=== PATIENT | female | born 1960 | race Asian ===

== ENCOUNTER 2024-02-19 09:00 | Day surgery (SDC) | payer OTHER ==
[~2024-02-19] VITALS: Ht 152.4 cm; Wt 65.0 kg
[~2024-02-19 09:00] MED LIST: SODIUM CHLORIDE 0.9% 1,000 ML ONE
[2024-02-19] MEDS ORDERED: BENZOCAINE 20% 50 MCG/SPRAY 57 GM TP ONE (09:01)
[2024-02-19] MEDS ORDERED: LIDOCAINE 4% 50 ML SOLUTION TP ONE (09:01)
[2024-02-19] MEDS ORDERED: ALBUTEROL SULFATE 2.5 MG/0.5 ML NEB SOLUTION NEB ONE (09:01)
[2024-02-19] MEDS ORDERED: LIDOCAINE 2% 11 ML JELLY TP ONE (09:01)
[2024-02-19] MEDS ORDERED: DiphenhydrAMINE HCL 50 MG/ML VIAL ONE (09:03)
[2024-02-19] MEDS ORDERED: SODIUM TETRADECYL SULFATE 3% 60 MG/2 ML VIAL IVP ONE (09:03)
[2024-02-19] MEDS ORDERED: FLUMAZENIL 0.1 MG/ML 5 ML VIAL IVP ONE (09:03)
[2024-02-19] MEDS ORDERED: NALOXONE HCL 0.4 MG/ML VIAL ONE (09:03)
[2024-02-19] MEDS ORDERED: EPINEPHrine 1:10,000 [1 MG/10 ML] SYRINGE ONE (09:03)
[2024-02-19] MEDS ORDERED: ATROPINE SULFATE 0.1 MG/ML 10 ML SYRINGE IVP ONE (09:03)
[2024-02-19] MEDS ORDERED: FentaNYL CITRATE PF 100 MCG/2 ML VIAL ONE (09:04)
[2024-02-19] MEDS ORDERED: MIDAZOLAM HCL 2 MG/2 ML VIAL ONE (09:04)
[2024-02-19] MEDS: SODIUM CHLORIDE 0.9% 1,000 ML IV ONE (09:31)
[2024-02-19 09:40] VITALS: PULSE 67; RESP 18; O2SAT 98
[2024-02-19 09:56] LABS: GLUCOMETER DEV NAME(LOC) SDS.; GLUCOSE,POINT OF CARE 142 MG/DL (70-110)
[2024-02-19] MEDS ORDERED: MethylPREDNISolone SOD SUCC 125 MG/2 ML VIAL ONE (10:24)
[2024-02-19] MEDS: MethylPREDNISolone SOD SUCC 125 MG/2 ML VIAL IVP ONE (10:29)
[2024-02-19] MEDS ORDERED: CHOL25TA4 PO (11:55)
[2024-02-19] MEDS ORDERED: FLUT16SP NASAL (11:55)
[2024-02-19] MEDS ORDERED: GABA-1216 PO (11:55)
[2024-02-19] MEDS ORDERED: DULO20CA71 PO (11:55)
[2024-02-19] MEDS ORDERED: METH-659 PO (11:55)
[2024-02-19] MEDS ORDERED: CALC-1085 PO (11:55)
[2024-02-19] MEDS ORDERED: DAPA10TA PO (11:55)
[2024-02-19] MEDS ORDERED: MONT-35 PO (11:55)
[2024-02-19] MEDS ORDERED: OLAN5TAB52 PO (11:55)
[2024-02-19] MEDS ORDERED: DICY20TA95 PO (11:55)
[2024-02-19] MEDS ORDERED: ALEN10TA33 PO (11:55)
== END 2024-02-19 12:15 | disposition home or self-care (01) ==
LOC: SURGERY 09:00
PROVIDERS: ATTEND Internal Medicine Critical Care Medicine
DX: R05.3 Chronic cough (principal); J38.4 Edema of larynx; B37.0 Candidal stomatitis; R04.2 Hemoptysis; J98.8 Other specified respiratory disorders; J84.10 Pulmonary fibrosis, unspecified; R91.8 Other nonspecific abnormal finding of lung field; J45.909 Unspecified asthma, uncomplicated; E11.9 Type 2 diabetes mellitus without complications; J98.09 Other diseases of bronchus, not elsewhere classified; Z85.21 Personal history of malignant neoplasm of larynx; Z98.890 Other specified postprocedural states
CPT/HCPCS: 31623; 82962; 87206; 87101; 87220; 87070; 88108; 31624; 71045; 87015; J3010; J2250; J2919; J7030; J0171; J0461; J1200; J2310; J3490; J7613; Z7610